=== PATIENT | male | born 1985 | race Asian ===

== ENCOUNTER 2021-10-17 07:00 | Emergency (ER) | payer OTHER, SELFPAY ==
--- NOTE | 2021-10-17 07:24 | ED.GENADULT ---
HPI - General Adult General Chief complaint: Extremity Injury, Lower Stated complaint: left foot swollen/pain x7 days Time Seen by Provider: 10/17/21 07:05 History of Present Illness HPI narrative: 36-year-old gentleman with history of hypertension for which he takes 10 mg of lisinopril presents with left 1st metatarsal joint pain. He notes that over the last 3 weeks he has started an exercise program that involves walking on a treadmill at an incline. One week ago he had a longer work out and noticed that his left MTP joint was a bit sore. Was not worse the next day seem to be improving but then over the last 3 days has noticed increasing pain to the point where he is limping. He describes no redness, does note that it is a bit more full compared to the right side. He has never had problems at this area before. Describes no specific trauma aside from the increased use with walking over the last 3 weeks. No tenderness in the ankles knees hips or back. He does not have a history of gout. He describes no chest pain, palpitations, abdominal pain, dysuria, constipation or diarrhea. Related Data Home Medications Medication Instructions Recorded Confirmed ibuprofen 800 mg tablet 800 mg PO Q8H PRN 04/02/21 04/02/21 Previous Rx's Medication Instructions Recorded indomethacin 50 mg capsule 50 mg PO TID #30 cap 10/17/21 Allergies Allergy/AdvReac Type Severity Reaction Status Date / Time No Known Drug Allergies Allergy Unverified 04/02/21 09:00 Review of Systems Review of Systems Narrative: Remainder of complete review of systems is otherwise unremarkable except for that included in the HPI. Patient History Medical History (Updated 10/17/21 @ 09:28 by Ana Navarrete MD) Hypertension Family History Family/Other Heart attack Social History Smoking Status: Never smoker Smoking Status: Never smoker Exam Narrative Exam Narrative: General: Alert appropriate in no acute distress Respiratory: Able to speak in full sentences, no obvious respiratory distress Skin: No obvious rashes, warm and dry Neurologic: Grossly intact no obvious asymmetries or abnormalities Psych: appropriate insight and affect, cooperative Extremity: Left MTP joint has some mild fullness over the area without overt redness or warmth. Tender with manipulation of the joint but not so much with simply touching the skin. He is able to walk on the area. Neurovascularly intact. Initial Vital Signs Initial Vital Signs: Vital Signs Temperature 98.0 F 10/17/21 07:28 Pulse Rate 80 10/17/21 07:28 Respiratory Rate 16 10/17/21 07:28 Blood Pressure 147/98 H 10/17/21 07:28 Pulse Oximetry 96 10/17/21 07:28 Course Orders Ordered: ED Orders 10/17/21 07:32 XR foot LT min 3V Stat 10/17/21 07:55 CBC Auto Diff [Complete Blood Count AUTO DIFF] Stat CMP [Comprehensive Metabolic Panel] Stat Uric Acid Stat Discontinued Medications Indomethacin (Indomethacin 25 Mg Capsule) 50 mg PO NOW ONE Stop: 10/17/21 07:40 Last Admin: 10/17/21 08:13 Dose: 50 mg Documented by: TAMI Vital Signs Vital signs: Vital Signs - 8 hr 10/17/21 07:28 Temperature 98.0 F Pulse Rate 80 Respiratory Rate 16 Blood Pressure 147/98 H Pulse Oximetry 96 Medical Decision Making Lab Data Result diagrams: 10/17/21 07:55 10/17/21 07:55 Labs: Lab Results 10/17/21 10/17/21 Range/Units 07:55 07:55 WBC 7.3 (4.5-11.0) X10^3/uL RBC 4.83 (4.5-5.9) X10^6/uL Hgb 15.1 (13.5-17.5) g/dL Hct 44.5 (41-53) % MCV 92.2 (80-100) fL MCH 31.3 (26-34) PG MCHC 34.0 (30-36) % RDW 12.8 (11.6-14.8) % Plt Count 209 (150-400) X10^3/uL Neut % (Auto) 57.4 (50-75) % Lymph % (Auto) 28.0 (25-40) % Runnels % (Auto) 9.6 (3-14) % Eos % (Auto) 4.6 H (2-4) % Baso % (Auto) 0.4 (0-2) % Neut # (Auto) 4200 (1284-8862) /uL Lymph # (Auto) 2000 (0141-9581) /uL Runnels # (Auto) 700 (0-900) /uL Eos # (Auto) 300 (0-450) /uL Baso # (Auto) 0 (0-100) /uL Sodium 141 (137-145) mmol/L Potassium 4.2 (3.4-5.1) mmol/L Chloride 106 (98-107) mmol/L Carbon Dioxide 25 (22-32) mmol/L BUN 12 (9-20) mg/dL Creatinine 0.66 (0.66-1.25) mg/dL Estimated GFR > 60.0 (>60) mL/min BUN/Creatinine Ratio 18.2 (6-22) Glucose 140 H (70-100) mg/dL Uric Acid 8.5 (3.5-8.5) mg/dL Calcium 9.5 (8.4-10.2) mg/dL Total Bilirubin 0.5 (0.2-1.3) mg/dL AST 67 H (17-59) IU/L ALT 166 H (<50) IU/L Alkaline Phosphatase 51 (38-126) U/L Total Protein 7.8 (6.3-8.2) g/dL Albumin 4.7 (3.5-5.0) g/dL Globulin 3.1 (1.7-4.1) g/dL Albumin/Globulin Ratio 1.5 (1.0-2.8) Imaging Data XR foot: My Impression: No clinical indication of infection or concern for osteomyelitis Radiologist's Impression: FINDINGS:? ? Bones:? No fractures or dislocations.? On 1 image, there is potential lucency seen along the medial aspect of the distal 1st metatarsal.? ? Soft tissues:? No tibiotalar joint effusion.? Achilles tendon appears normal.? ? ? IMPRESSION:? Potential distal 1st metatarsal lucency, which may be related to osteomyelitis in the appropriate clinical setting. ? If there is strong suspicion for developing osteomyelitis, please consider a dedicated MRI without and with contrast for further evaluation (assuming that there is no contraindication to MRI).? ? ? Dictated by: Neymar Regalado M.D. on 10/17/2021 at 7:03? ?? MDM Narrative Medical decision making narrative: 36-year-old gentleman with increasing pain in the left MTP joint. X-rays do not suggest bony injury. Uric acid is at 8.5 which is the upper limit of normal. Gout is a significant possibility after being given indomethacin in the emergency department he is actually feeling significantly better. He has also started a new workout program and overuse in the setting of joint that is commonly associated with arthritis may also be part of his issue. He is given a prescription for Indocin Discharge Plan Departure Patient Disposition: Home Clinical Impression: Gout, Metatarsophalangeal joint sprain Instructions: Gout Activity Restrictions/Additional Instructions: Thank you for coming in today In the pain in your foot may be simply overuse at that joint however that is also a common joint involved with gout. Your uric acid level is at the extreme upper and of normal, uric acid is responsible for gout. Indomethacin is similar to ibuprofen, a nonsteroidal medication that helps with inflammation. It tends to be more specific for gout and my recommendation is 1 capsule 3 times a day for 3 days then decreasing its use as needed. You can continue to use ibuprofen after that. Please do not mix indomethacin and ibuprofen. I have given you a prescription for indomethacin and today the [facility] in [place] is the pharmacy that is open. You might try using your treadmill at the lower incline but slightly faster pace for the next week or 2. Your x-ray was reassuring we normal If you have worsening symptoms or complaints please feel free to return to the ER Happy Thanksgiving. Prescriptions: New indomethacin 50 mg capsule 50 mg PO TID Qty: 30 0RF Rx Instructions: administer with food or milk No Action ibuprofen 800 mg tablet 800 mg PO Q8H [id number]
[2021-10-17 07:28] VITALS: BP 147/98; PULSE 80; RESP 16; TEMP 36.7; O2SAT 96; BMI 37.5
--- NOTE | 2021-10-17 07:32 | DI.RAD.S_ITS ---
PROCEDURE: XR FOOT LT MIN 3V INDICATIONS: 1st metatarsal pain and swelling TECHNIQUE: 3 views of the foot were acquired. COMPARISON: None. FINDINGS: Bones: No fractures or dislocations. On 1 image, there is potential lucency seen along the medial aspect of the distal 1st metatarsal. Soft tissues: No tibiotalar joint effusion. Achilles tendon appears normal. IMPRESSION: Potential distal 1st metatarsal lucency, which may be related to osteomyelitis in the appropriate clinical setting. If there is strong suspicion for developing osteomyelitis, please consider a dedicated MRI without and with contrast for further evaluation (assuming that there is no contraindication to MRI). Dictated by: Neymar Regalado M.D. on 10/17/2021 at 7:03 Approved by: Neymar Regalado M.D. on 10/17/2021 at 7:05
[2021-10-17 08:03] LABS: Add Manual Diff / Slide Review NO; Basophils Absolute Auto 0 /uL (0-100); Basophils Percent Auto 0.4 % (0-2); Eosinophils Absolute Auto 300 /uL (0-450); Eosinophils Percent Auto 4.6 % (2-4); Hematocrit 44.5 % (41-53); Hemoglobin 15.1 g/dL (13.5-17.5); Lymphocytes Absolute Auto 2000 /uL (1100-4500); Mean Corpuscular Hemoglobin 31.3 PG (26-34); Mean Corpuscular Volume 92.2 fL (80-100); Monocytes Absolute Auto 700 /uL (0-900); Monocytes Percent Auto 9.6 % (3-14); Neutrophils Absolute Auto 4200 /uL (1500-7000); Neutrophils Percent Auto 57.4 % (50-75); Platelet Count 209 X10^3/uL (150-400); Red Blood Cell Count 4.83 X10^6/uL (4.5-5.9); Red Cell Distribution Width 12.8 % (11.6-14.8); White Blood Cell Count 7.3 X10^3/uL (4.5-11.0)
[2021-10-17] MEDS: INDOMETHACIN 25 MG CAPSULE 50 MG PO (08:13)
[2021-10-17 08:18] LABS: Alanine Aminotransferase 166 IU/L (<50); Albumin 4.7 g/dL (3.5-5.0); Albumin Globulin Ratio 1.5 (1.0-2.8); Alkaline Phosphatase 51 U/L (38-126); Aspartate Aminotransferase 67 IU/L (17-59); BUN Creatinine Ratio 18.2 (6-22); Bilirubin Total 0.5 mg/dL (0.2-1.3); Blood Urea Nitrogen 12 mg/dL (9-20); Calcium 9.5 mg/dL (8.4-10.2); Carbon Dioxide 25 mmol/L (22-32); Chloride 106 mmol/L (98-107); Estimated Glomerular Filt Rate > 60.0 mL/min (>60); Globulin 3.1 g/dL (1.7-4.1); Glucose 140 mg/dL (70-100); HEMOLYSIS < 15 (0-50); Potassium 4.2 mmol/L (3.4-5.1); Sodium 141 mmol/L (137-145); Total Protein 7.8 g/dL (6.3-8.2); Uric Acid 8.5 mg/dL (3.5-8.5)
[2021-10-17 09:39] VITALS: BP 145/102; PULSE 80; RESP 18; TEMP 36.2; O2SAT 100
== END 2021-10-17 09:39 | disposition home or self-care (01) ==
PROVIDERS: Emergency Provider Emergency Medicine
DX: S93.522A Sprain of metatarsophalangeal joint of left great toe, initial encounter (principal); M10.9 Gout, unspecified; X50.9XXA Other and unspecified overexertion or strenuous movements or postures, initial encounter; Y93.A1 Activity, exercise machines primarily for cardiorespiratory conditioning
CPT/HCPCS: 36415; 73630; 80053; 84550; 85025; 99283